=== PATIENT | male | born 1935 | race Caucasian/White ===

== ENCOUNTER 2016-08-29 23:28 | Emergency (ER) | payer OTHER ==
[~2016-08-29] VITALS: Ht 172.7 cm; Wt 83.9 kg
[~2016-08-29 23:28] MED LIST: ANTIVERT 25MG #1 PAC PO; CALCIUM 500 +1 EAC5 PO; COLACE100 MG PO; DITROPAN XL10 MG PO; ECOTRIN81 MG PO; FERROUS SULFAT325 M3 PO; FLOMAX(MONOGRA0.4 MG PO; GEMFIBROZIL600 MG PO; LEVOTHYROXIN0.075 MG PO; MASON NATURAL1200 MG PO; METFORMIN1000 MG PO; METOPROLOL SUCC25 M1 PO; NIACIN500 MG PO; OMEPRAZOLE D/R20 MG PO; OYSTER SHELL C250 MG PO; PRESERVISION A1 EAC1 PO; PRINIVIL 5MG5 MG PO; PROS5 PO; SLO-NIACIN500 MG PO; VITAMIN B122500 MC2 PO; VITAMIN C500 M7 PO; VITAMIN D1000 IU PO
[2016-08-29 23:55] VITALS: BP 128/70
--- NOTE | 2016-08-30 00:17 | ED GI/GU/ABDOMINAL COMPLAINT ---
History of Present Illness General Chief Complaint: General Adult Stated Complaint: RECTAL BLEEDING PER PT Source: patient, family, old records Exam Limitations: no limitations Vital Signs & Intake/Output Vital Signs & Intake/Output Vital Signs Date Time Temp Pulse Resp B/P Pulse O2 O2 Flow FiO2 Ox Delivery Rate 08/29 2359 98 Room Air 08/29 2355 98.6 76 18 128/70 97 Room Air ED Intake and Output 08/30 0000 08/29 1200 Intake Total Output Total Balance Patient 185 lb Weight Allergies Coded Allergies: morphine (Severe, UNKNOWN 08/29/16) Penicillins (UNKNOWN 08/29/16) Reconcile Medications Anusol Hc (Anusol-Hc) 25 MG SUPP.RECT 1 SUP RC BID hemorrhoids Ascorbic Acid (Vitamin C) 500 MG CAPSULE.ER 1 CAP PO DAILY VITAMIN SUPPLEMENT (Reported) Aspirin (Ecotrin) 81 MG ECT 1 TAB PO DAILY HEART/BLOOD (Reported) Calcium Carbonate/Vitamin D3 (Calcium 500 + D Tablet) 1 EACH TABLET 1 TAB PO BID VITAMIN SUPPLEMENT (Reported) Cyanocobalamin (Vitamin B-12) (Vitamin B12) 2,500 MCG TAB.CHEW 1,000 MCG PO DAILY VITAMIN SUPPLEMENT (Reported) Docusate Sodium (Colace) 100 MG SGL 1 CAP PO BID STOOL SOFTENER (Reported) Ferrous Sulfate 325 MG TABLET 1 TAB PO DAILY VITAMIN SUPPLEMENT (Reported) Finasteride (Propecia) 5 MG TAB 5 MG PO DAILY PROSTATE (Reported) Gemfibrozil 600 MG TAB 1 TAB PO BID CHOLESTEROL (Reported) Levothyroxine Sodium 0.075 MG TAB 1 TAB PO DAILY THYROID (Reported) Lisinopril (Prinivil) 5 MG TAB 1 TAB PO DAILY BP (Reported) METFORMIN HCL (Metformin) 1,000 MG TAB 1 TAB PO BID DIABETES (Reported) Metoprolol Succinate 25 MG TAB 1 TAB PO DAILY HTN (Reported) Niacin 500 MG TAB 1 TAB PO DAILY SUPPLEMENT (Reported) Niacin (Slo-Niacin) 500 MG TABLET.ER 1 TAB PO BEDTIME VITAMIN SUPPLEMENT ( Reported) OMEGA-3 FATTY ACIDS/FISH OIL (Fish Oil 1,200 MG Softgel) 1,200 MG SGL 1 CAP PO BID SUPPLEMENT (Reported) Omeprazole 20 MG ECC 1 CAP PO DAILY GI (Reported) Tamsulosin Hydrochloride (Flomax) 0.4 MG CAP 1 CAP PO QPM PROSTATE (Reported) Vit C/E/Zn/Coppr/Lutein/Zeaxan (Preservision Areds 2 Softgel) 1 EACH CAPSULE 1 TAB PO BID VITAMIN SUPPLEMENT (Reported) Triage Note: TRIAGE: PATIENT TO ER FROM HOME REPORTS +BM APPROX 1 HOUR AGO AND NOTED BRIGHT RED BLOOD ON TOILET PAPER, REPORTS HX OF SAME AND "HOLD A CLOTH THERE FOR A FEW MINUTES AND IT STOPS, BUT TONIGHT IT DIDN'T STOP." REPORTS TAKES BABY ASA DAILY, UNKNOWN BLOOD THINNERS. DENIES ANY ABD PAIN, DENIES N/V/D. Triage Nurses Notes Reviewed? yes Onset: Just prior to arrival Duration: hour(s):, better, constant, gone now Timing: recent history Quality/Severity: moderate Location: rectal Radiation: no radiation Activities at Onset: rest Prior Abdominal Problems: similar symptoms Past Sexual History: Unobtainable at this time No Modifying Factors: none HPI: Prior to admission patient moved his bowels and had rectal bleeding heavier than usual hemorrhoidal bleeding lasting longer now stopped. He denies fever chills nausea vomiting diarrhea abdominal pain chest pain shortness breath headache dysuria rash. Past History Travel History Traveled to [place] past 21 day No Medical History Any Pertinent Medical History? see below for history Neurological: vertigo EENT: cataracts, hearing loss, macular degeneration Cardiovascular: angina, hypertension, hyperlipidemia Respiratory: NONE Gastrointestinal: constipation, GERD Hepatic: NONE Renal: NONE Musculoskeletal: NONE Psychiatric: NONE Endocrine: diabetes, hypothyroidism Blood Disorders: NONE Cancer(s): NONE HEAD MACHINIST/Reproductive: "PROSTATE PROBLEMS" Surgical History Surgical History: non-contributory Psychosocial History What is your primary language Nigerien Tobacco Use: Never used Family History Hx Contributory? No Review of Systems Review of Systems Constitutional: Reports: no symptoms. EENTM: Reports: no symptoms. Respiratory: Reports: no symptoms. Cardiovascular: Reports: no symptoms. GI: Reports: see HPI, constipation. Genitourinary: Reports: no symptoms. Musculoskeletal: Reports: no symptoms. Skin: Reports: no symptoms. Neurological/Psychological: Reports: no symptoms. Hematologic/Endocrine: Reports: no symptoms. Immunologic/Allergic: Reports: no symptoms. All Other Systems: Reviewed and Negative Physical Exam Physical Exam General Appearance: well developed/nourished, alert, awake, anxious, mild distress Head: atraumatic, normal appearance Eyes: Bilateral: normal appearance, PERRL, EOMI, normal inspection. Ears, Nose, Throat, Mouth: hearing grossly normal, moist mucous membrane Neck: normal inspection, supple, full range of motion, normal alignment Respiratory: normal breath sounds, chest non-tender, no respiratory distress, quiet respiration, lungs clear Cardiovascular: regular rate/rhythm, normal peripheral pulses, norml femoral pulses equa Peripheral Pulses: 4+ carotid (R), 4+ carotid (L) Gastrointestinal: normal bowel sounds, soft, non-tender, no organomegaly Rectal: hemmorrhoids (no active bleeding) Male Genitals: normal genitalia Back: normal inspection, normal range of motion Extremities: normal range of motion, no ligament instability Neurologic/Psych: no motor/sensory deficits, awake, alert, oriented x 3, normal gait, normal mood/affect Skin: intact, normal color, warm/dry Core Measures ACS in differential dx? No Severe Sepsis Present: No Septic Shock Present: No Progress Differential Diagnosis: hemorrhoids Plan of Care: anusol high fiber diet Initial ED EKG: none Departure Departure Time of Disposition: 15 Disposition: HOME OR SELF CARE Condition: Stable Clinical Impression Primary Impression: External bleeding hemorrhoids Referrals: DHAVAL SALDIVAR APRN (PCP/Family) Departure Forms: Customer Survey General Discharge Information Prescriptions: Current Visit Scripts Anusol Hc (Anusol-Hc) 1 SUP RC BID #28 SUP
[2016-08-30] MEDS ORDERED: ANUSOL-HC25 M1 RC (00:18)
== END 2016-08-30 00:27 ==
LOC: ERH 23:28
DX: K64.4 Residual hemorrhoidal skin tags (principal)